=== PATIENT | male | born 1970 | race Caucasian/White ===

== ENCOUNTER 2019-12-11 13:44 | Emergency (ER) | payer OTHER ==
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
== END 2019-12-11 15:27 | disposition home or self-care (01) ==
LOC: JP.ED 13:44
DX: S06.0X1A Concussion with loss of consciousness of 30 minutes or less, initial encounter (principal); S02.5XXA Fracture of tooth (traumatic), initial encounter for closed fracture; S41.032A Puncture wound without foreign body of left shoulder, initial encounter; Z88.0 Allergy status to penicillin; V49.9XXA Car occupant (driver) (passenger) injured in unspecified traffic accident, initial encounter
CPT/HCPCS: 70450; 99285-25